=== PATIENT | female | born 1960 | race Caucasian/White ===

== ENCOUNTER 2021-09-21 12:08 | Emergency (ER) | payer BC ==
[2021-09-21] MEDS ORDERED: Sodium Chloride 0.9% 10 ML Syringe FLUSH PRN (12:13)
[2021-09-21 13:41] LABS: ANION GAP 11.3 mmol/L (5-15); CHLORIDE,CL 105 mmol/L (98-107); SODIUM,NA 139 mmol/L (136-145)
== END 2021-09-21 14:19 | disposition home or self-care (01) ==
LOC: KA.ED 12:08
DX: R07.89 Other chest pain (principal); M25.512 Pain in left shoulder; Z56.6 Other physical and mental strain related to work; I11.0 Hypertensive heart disease with heart failure; I50.9 Heart failure, unspecified; E78.00 Pure hypercholesterolemia, unspecified; Z79.899 Other long term (current) drug therapy; Z88.2 Allergy status to sulfonamides
CPT/HCPCS: 36415; 71045; 80053; 83880; 84484; 85025; 85379; 93010; 99284; 99285-25